=== PATIENT | male | born 1980 | race Caucasian/White ===

== ENCOUNTER 2017-02-16 08:41 | Emergency (ER) | payer OTHER, MEDICAID ==
[~2017-02-16] VITALS: Wt 68.0 kg
[~2017-02-16 08:41] MED LIST: NAPROSYN500 MG PO; PENICILLIN VK500 MG PO; Peridex 473 ML473 ML PO
== END 2017-02-16 10:37 | disposition home or self-care (01) ==
LOC: ED 08:41
DX: S01.111A Laceration without foreign body of right eyelid and periocular area, initial encounter (principal); S20.419A Abrasion of unspecified back wall of thorax, initial encounter; F17.200 Nicotine dependence, unspecified, uncomplicated; V49.88XA Car occupant (driver) (passenger) injured in other specified transport accidents, initial encounter; Y93.89 Activity, other specified; Y92.413 State road as the place of occurrence of the external cause; Y99.9 Unspecified external cause status